=== PATIENT | female | born 1990 | race Caucasian/White ===

== ENCOUNTER 2016-12-27 07:37 | Emergency (ER) | payer MEDICAID ==
[~2016-12-27] VITALS: Ht 149.9 cm; Wt 118.2 kg
[2016-12-27] MEDS ORDERED: HYDROcodone/APAP 10/325 MG TABLET ONE (08:27)
[2016-12-27] MEDS ORDERED: LISINOPRIL 20 MG TABLET ONE (08:27)
[2016-12-27] MEDS ORDERED: OXYcodone/APAP 10/325MG TABLET ONE (08:28)
[2016-12-27] MEDS ORDERED: OXYcodone/APAP 10/325MG TABLET PO ONE (08:30)
[2016-12-27] MEDS ORDERED: LISINOPRIL 10 MG TABLET PO ONE (08:30)
[2016-12-27 08:54] VITALS: BP 128/78
== END 2016-12-27 09:42 | disposition home or self-care (01) ==
LOC: ED 09:36
DX: K08.89 Other specified disorders of teeth and supporting structures (principal); I10 Essential (primary) hypertension
CPT/HCPCS: 99283

== ENCOUNTER 2017-02-16 00:43 | Emergency (ER) | payer SELFPAY ==
[~2017-02-16] VITALS: Ht 149.9 cm; Wt 118.8 kg
[2017-02-16 02:01] LABS: BLOOD UREA NITROGEN 12 mg/dL (7-18)
[2017-02-16 02:08] LABS: IS PT STATUS REG ER OR PRE ER? YES
[2017-02-16 02:50] VITALS: BP 147/91
== END 2017-02-16 02:52 | disposition home or self-care (01) ==
LOC: ED 02:48
DX: R07.89 Other chest pain (principal); I10 Essential (primary) hypertension; J45.909 Unspecified asthma, uncomplicated
CPT/HCPCS: 36415; 71020; 80048; 82040; 84484; 85025; 93005; 99285

== ENCOUNTER 2017-08-19 05:54 | Emergency (ER) | payer MEDICAID ==
[~2017-08-19] VITALS: Ht 149.9 cm; Wt 106.0 kg
[2017-08-19 06:55] LABS: HEMATOCRIT 38.8 % (34.6-47.8); HEMOGLOBIN 12.3 g/dL (11.7-16.4); WHITE BLOOD COUNT 9.3 x10^3/uL (3.4-10)
[2017-08-19 07:06] LABS: BLOOD UREA NITROGEN 9 mg/dL (7-18)
[2017-08-19 07:11] LABS: ACETAMINOPHEN < 2 mcg/mL (10-30)
[2017-08-19 07:30] VITALS: BP 130/73
== END 2017-08-19 09:14 | disposition home or self-care (01) ==
LOC: ED 09:08
DX: F32.9 Major depressive disorder, single episode, unspecified (principal); F41.9 Anxiety disorder, unspecified; I10 Essential (primary) hypertension; Z59.0 Homelessness; Z91.14 Patient's other noncompliance with medication regimen
CPT/HCPCS: 36415; 80048; 80307; 80329; 82040; 84703; 85025; 99284; G0479; G0480

== ENCOUNTER 2017-09-11 02:47 | Emergency (ER) | payer MEDICAID ==
[~2017-09-11] VITALS: Ht 149.9 cm; Wt 100.0 kg
[2017-09-11] MEDS ORDERED: ALBUTEROL SULFATE 2.5 MG/3 ML ONE (03:25)
[2017-09-11 04:37] VITALS: BP 156/91
== END 2017-09-11 04:45 | disposition home or self-care (01) ==
LOC: ED 04:37
DX: J45.31 Mild persistent asthma with (acute) exacerbation (principal); J02.8 Acute pharyngitis due to other specified organisms; I10 Essential (primary) hypertension
CPT/HCPCS: 87081; 87880; 94640; 99285; J7512

== ENCOUNTER 2017-09-28 09:22 | Emergency (ER) | payer MEDICAID ==
[~2017-09-28] VITALS: Ht 149.9 cm; Wt 104.0 kg
[2017-09-28 09:24] VITALS: BP 169/115
== END 2017-09-28 11:11 | disposition home or self-care (01) ==
LOC: ED 10:17
DX: J11.1 Influenza due to unidentified influenza virus with other respiratory manifestations (principal)
CPT/HCPCS: 93005; 99281; 99283

== ENCOUNTER 2017-10-11 18:48 | Emergency (ER) | payer MEDICAID ==
[~2017-10-11] VITALS: Ht 167.6 cm; Wt 120.8 kg
[2017-10-11 18:54] VITALS: BP 148/107
[2017-10-11] MEDS ORDERED: LORazepam 1MG TABLET ONE (19:12)
[2017-10-11] MEDS ORDERED: LORazepam 1MG TABLET PO ONE (19:30)
== END 2017-10-11 19:51 | disposition home or self-care (01) ==
LOC: ED 19:37
DX: F41.1 Generalized anxiety disorder (principal); F32.9 Major depressive disorder, single episode, unspecified; I10 Essential (primary) hypertension
CPT/HCPCS: 99284

== ENCOUNTER 2017-11-02 15:22 | Emergency (ER) | payer MEDICAID ==
[~2017-11-02] VITALS: Ht 149.9 cm; Wt 100.0 kg
[2017-11-02 15:32] VITALS: BP 127/87
[2017-11-02] MEDS ORDERED: HYDROcodone/APAP 5/325 TABLET PO STA (17:20)
[2017-11-02] MEDS ORDERED: HYDROcodone/APAP 5/325 TABLET ONE (17:40)
== END 2017-11-02 18:03 | disposition home or self-care (01) ==
LOC: ED 17:57
DX: M54.6 Pain in thoracic spine (principal); I10 Essential (primary) hypertension; J45.909 Unspecified asthma, uncomplicated; F41.9 Anxiety disorder, unspecified; Y04.8XXA Assault by other bodily force, initial encounter; Z91.14 Patient's other noncompliance with medication regimen
CPT/HCPCS: 71046; 72072; 72125; 93005; 99284

== ENCOUNTER 2017-11-14 02:13 | Emergency (ER) | payer MEDICAID ==
[~2017-11-14] VITALS: Ht 149.9 cm; Wt 100.0 kg
[2017-11-14 03:22] LABS: HCG UR SG 1.038 (1.003-1.030); MICROSCOPIC NOT IND
[2017-11-14 03:30] LABS: CULTURE INDICATED? NO
[2017-11-14 03:43] LABS: BASOPHILS # (AUTO) 0.01 x10^3/uL (0-0.1); BASOPHILS % (AUTO) 0 % (0-1); EOSINOPHILS # (AUTO) 0.17 x10^3/uL (0-0.4); EOSINOPHILS % (AUTO) 3 % (1-7); LYMPHOCYTES # (AUTO) 1.64 x10^3/uL (1-3.4); LYMPHOCYTES % (AUTO) 34 % (22-44); MD NO; MEAN CORPUSCULAR HEMOGLOBIN 23.7 pg (27.0-34.8); MEAN CORPUSCULAR HGB CONC 32.3 g/dL (32.4-35.8); MEAN CORPUSCULAR VOLUME 73.5 fL (80-100); MEAN PLATELET VOLUME 9.2 fL (7.4-10.4); MONOCYTES # (AUTO) 0.71 x10^3/uL (0.2-0.8); MONOCYTES % (AUTO) 15 % (2-9); NEUTROPHILS # (AUTO) 2.33 x10^3/uL (1.8-6.8); NEUTROPHILS % (AUTO) 48 % (42-75); PLATELET COUNT 309 x10^3/uL (130-400); RED CELL DISTRIBUTION WIDTH 17.9 % (9.6-15.2)
[2017-11-14 03:52] LABS: ALBUMIN 3.3 g/dL (3.4-5.0); ANION GAP 7 mmol/L (5-15); CHLORIDE 108 mmol/L (98-107)
[2017-11-14 03:58] LABS: ALANINE AMINOTRANSFERASE 39 U/L (12-78); ALKALINE PHOSPHATASE 81 U/L (45-117); BILIRUBIN,TOTAL 0.5 mg/dL (0.2-1.0); CREATININE 0.73 mg/dL (0.55-1.02); TOTAL PROTEIN 7.1 g/dL (6.4-8.2); TROPONIN I < 0.015 ng/mL (0.000-0.045)
[2017-11-14 05:02] VITALS: BP 121/74
== END 2017-11-14 06:05 | disposition home or self-care (01) ==
LOC: ED 03:27
DX: B34.9 Viral infection, unspecified (principal); R11.2 Nausea with vomiting, unspecified; R07.2 Precordial pain; R10.2 Pelvic and perineal pain; R07.9 Chest pain, unspecified
CPT/HCPCS: 36415; 71045; 80053; 81003; 81025; 83690; 84484; 85025; 93005; 99285